=== PATIENT | male | born 1965 | race Caucasian/White ===

== ENCOUNTER 2020-12-04 08:05 | Outpatient (CLI) | payer OTHER | END 2020-12-04 08:06 | disposition home or self-care (01) | LOC: ULT 08:05 | PROVIDERS: ATTEND Internal Medicine | DX: K70.31 Alcoholic cirrhosis of liver with ascites (principal); R94.5 Abnormal results of liver function studies; D53.9 Nutritional anemia, unspecified | CPT/HCPCS: 93975 ==